=== PATIENT | male | born 1955 | race Caucasian/White ===

== ENCOUNTER 2018-03-11 20:41 | Emergency (ER) | payer MEDICARE ==
[~2018-03-11] VITALS: Ht 180.3 cm; Wt 83.9 kg
[2018-03-11 22:25] LABS: HEMOGLOBIN 14.7 gm/dL (14.0-18.0); MCH 30.8 pg (26.0-34.0); MCHC 34.3 g/dL (28.0-37.0); MCV 89.8 fL (80.0-100.0); MPV 6.9 fl. (7.2-11.1); NUCLEATED RBCS 0 /100WBC; PLATELET COUNT* 287 thou/uL (150-400); RBC 4.79 mil/uL (4.50-6.00); RDW-CV 13.5 % (10.5-14.5); WBC 13.6 thou/uL (4.0-11.0)
[2018-03-11 22:34] LABS: CALCIUM 8.4 mg/dL (8.5-10.1); CREATININE 1.3 mg/dL (0.6-1.3); POTASSIUM 3.4 mmol/L (3.5-5.1)
[2018-03-11 22:39] LABS: ALBUMIN 3.6 g/dL (3.4-5.0); TOTAL BILIRUBIN 1.2 mg/dL (<0.1-1.0)
[2018-03-11 23:15] LABS: ABSOLUTE LYMPHOCYTES 1.9 thou/uL (0.8-5.3); ABSOLUTE MONOCYTES 0.5 thou/uL (0.0-1.2); ABSOLUTE NEUTROPHILS 11.2 thou/uL (1.6-8.1)
[2018-03-11 23:16] LABS: PLATELET ESTIMATE ADEQUATE
[2018-03-12 01:55] VITALS: BP 115/45
== END 2018-03-12 02:18 | disposition short-term general hospital (02) ==
LOC: M.ERS 20:41
PROVIDERS: Personal Emergency Response Attendant
DX: T18.5XXA Foreign body in anus and rectum, initial encounter (principal); Z86.73 Personal history of transient ischemic attack (TIA), and cerebral infarction without residual deficits; X58.XXXA Exposure to other specified factors, initial encounter; Y93.89 Activity, other specified; Y92.89 Other specified places as the place of occurrence of the external cause; Y99.8 Other external cause status